=== PATIENT | female | born 1945 | race Caucasian/White ===

== ENCOUNTER → 2016-07-05 | Outpatient (CLI) | payer MEDICARE ==
[~2016-07-05] MED LIST: ALLE10TA5 PO; ATEN-102 PO; ATEN25TA PO; B COTAB3 PO; CALC500T21 PO; CLAR10CA3 PO; FURO1TAB93 PO; FURO20TA PO; GLUCTAB PO; LISI10TA3 PO; METF1000 PO; PERC5TAB12 PO; POTA-243 PO; POTA10CA PO; TAB-TAB PO; VITA400C70 PO; VITA500C PO
[2016-07-05 12:08] LABS: HEMOGLOBIN A1a 1.1 %; HEMOGLOBIN F 1.1 %; HEMOGLOBIN LA1C 2.1 %; HEMOGLOBIN P3 3.7 %
== END ==
LOC: CLAB 09:31
PROVIDERS: ATTEND Family Medicine
DX: E11.9 Type 2 diabetes mellitus without complications (principal)
CPT/HCPCS: 36415; 83036

== ENCOUNTER 2016-08-31 10:57 | Observation (INO) | payer MEDICARE ==
[2016-08-31] VITALS (9 sets, daily range): BP systolic 148–172; BP diastolic 71–87; PULSE 62–87; RESP 15–18; TEMP 97.7–98.8; O2SAT 94–100
[~2016-08-31] VITALS: Ht 160 cm; Wt 104.0 kg
[~2016-08-31 10:57] MED LIST changes: -ATEN25TA PO; -CLAR10CA3 PO; -FURO20TA PO; -LISI10TA3 PO; -METF1000 PO; -POTA10CA PO
--- NOTE | 2016-08-31 11:23 | PD ---
HPI Chief Complaint: Chest Pain Time Seen by Provider: 11:14 Travel History International Travel<30 days: No Contact w/Intl Traveler<30days: No Traveled to known affect area: No History of Present Illness HPI 71-year-old female here for evaluation of substernal chest pain. The patient reports that she has been having intermittent substernal chest discomfort since yesterday evening. Discomfort described as pressure/tightness, worse with deep inspiration and slightly worse with movements. She denies dyspnea. No hemoptysis. No known history of cardiac disease. No history of DVT or PE. She has had a hysterectomy for suspected endometrial cancer, however the patient reports that she does not have cancer. No fevers, chills, cough, or recent illness. No paresthesias or motor deficits. PFSH Past Medical History Cancer: No Cardiovascular Problems: No Diabetes: Yes Patient Takes Glucophage: Yes Endocrine: No Gastrointestinal Disorders: No Genitourinary: No Hepatitis: No Hiatal Hernia: No Hypertension: Yes Immune Disorder: No Medical other: Yes (SARCOIDOSIS) Musculoskeletal: No Neurologic: No Psychiatric: No Reproductive: No Respiratory: No Thyroid Disease: No Past Surgical History Abdominal Surgery: Yes (CHOLECYSTECTOMY 82') AICD: No Gynecologic Surgery: Yes (D & C) Hysterectomy: Yes Joint Replacement: No Oral Surgery: Yes (AGE 3 T&A) Pacemaker: No Thoracic Surgery: Yes (MEDIASTINOSCOPY (SARCOIDOSIS)) Other Surgery: Yes Social History Alcohol Use: No Tobacco Use: No Substance Use: No Allergies-Medications (Allergen,Severity, Reaction): Coded Allergies: Floxcin (Unverified Allergy, Severe, HYPERACTIVE, 09/04/12) Sulfa (Unverified Allergy, Severe, LIPS SWELLING; RASH, 09/04/12) Reported Meds & Prescriptions Reported Meds & Active Scripts Active Review of Systems Except as stated in HPI: all other systems reviewed are Neg Physical Exam Narrative GENERAL: Well-developed, well-nourished, comfortable, no acute distress. SKIN: Warm and dry. No rash. HEAD: Atraumatic. Normocephalic. EYES: Pupils equal and round. No scleral icterus. No injection or drainage. ENT: Mucous membranes pink and moist. NECK: Trachea midline. No JVD. CARDIOVASCULAR: Regular rate and rhythm. Distal pulses brisk and equal bilaterally. RESPIRATORY: No accessory muscle use. Clear to auscultation. Breath sounds equal bilaterally. GASTROINTESTINAL: Abdomen soft, non-tender, nondistended. MUSCULOSKELETAL: No obvious deformities. No clubbing. No cyanosis. No edema. NEUROLOGICAL: Awake and alert. No obvious cranial nerve deficits. Motor grossly within normal limits. Normal speech. PSYCHIATRIC: Appropriate mood and affect; insight and judgment normal. Data Data Last Documented VS Vital Signs Date Time Temp Pulse Resp B/P Pulse Ox O2 Delivery O2 Flow Rate FiO2 08/31/16 13:21 62 18 163/74 97 Room Air 08/31/16 10:58 98.0 Orders Electrocardiogram (08/31/16 ) Complete Blood Count With Diff (08/31/16 11:20) Comprehensive Metabolic Panel (08/31/16 11:20) B-Type Natriuretic Peptide (08/31/16 11:20) Act Partial Throm Time (Ptt) (08/31/16 11:20) Prothrombin Time / Inr (Pt) (08/31/16 11:20) Ckmb (Isoenzyme) Profile (08/31/16 11:20) Troponin I (08/31/16 11:20) Iv Access Insert/Monitor (08/31/16 11:20) Electrocardiogram (08/31/16 11:20) Ecg Monitoring (08/31/16 11:20) Oximetry (08/31/16 11:20) Oxygen Administration (08/31/16 11:20) Chest, Single Ap (08/31/16 11:20) Ct Pulmonary Angiogram (08/31/16 11:20) Sodium Chloride 0.9% Flush (Ns Flush) (08/31/16 11:30) Aspirin Chew (Aspirin Chew) (08/31/16 11:30) Iohexol 350 Inj (Omnipaque 350 Inj) (08/31/16 13:14) Labs Laboratory Tests Test 08/31/16 08/31/16 11:24 11:25 Sodium Level 137 MEQ/L Potassium Level 3.7 MEQ/L Chloride Level 100 MEQ/L Carbon Dioxide Level 27.7 MEQ/L Anion Gap 9 MEQ/L Blood Urea Nitrogen 8 MG/DL Creatinine 0.78 MG/DL Estimat Glomerular Filtration 73 ML/MIN Rate Random Glucose 146 MG/DL Calcium Level 8.6 MG/DL Total Bilirubin 0.6 MG/DL Aspartate Amino Transf 14 U/L (AST/SGOT) Alanine Aminotransferase 17 U/L (ALT/SGPT) Alkaline Phosphatase 89 U/L Total Creatine Kinase 33 U/L Troponin I LESS THAN 0.02 NG/ML Total Protein 8.0 GM/DL Albumin 3.3 GM/DL White Blood Count 17.7 TH/MM3 Red Blood Count 4.40 MIL/MM3 Hemoglobin 13.2 GM/DL Hematocrit 39.6 % Mean Corpuscular Volume 90.1 FL Mean Corpuscular Hemoglobin 29.9 PG Mean Corpuscular Hemoglobin 33.2 % Concent Red Cell Distribution Width 14.1 % Platelet Count 208 TH/MM3 Mean Platelet Volume 10.0 FL Neutrophils (%) (Auto) 53.6 % Lymphocytes (%) (Auto) 27.1 % Monocytes (%) (Auto) 19.1 % Eosinophils (%) (Auto) 0.0 % Basophils (%) (Auto) 0.2 % Neutrophils # (Auto) 9.5 TH/MM3 Lymphocytes # (Auto) 4.8 TH/MM3 Monocytes # (Auto) 3.4 TH/MM3 Eosinophils # (Auto) 0.0 TH/MM3 Basophils # (Auto) 0.0 TH/MM3 CBC Comment AUTO DIFF Differential Comment AUTO DIFF CONFIRMED Platelet Estimate NORMAL Platelet Morphology Comment NORMAL Prothrombin Time 11.3 SEC Prothromb Time International 1.0 RATIO Ratio Activated Partial 28.9 SEC Thromboplast Time B-Type Natriuretic Peptide 144 PG/ML MDM Medical Decision Making Medical Screen Exam Complete: Yes Emergency Medical Condition: Yes Medical Record Reviewed: Yes Interpretation(s) EKG: Sinus, rate 65, left axis deviation, RBBB, no acute ischemic abnormality. Differential Diagnosis ACS, pneumothorax, pericarditis, PE, pneumonia, musculoskeletal pain Narrative Course Vital signs show heart rate 67, blood pressure 150/71, pulse ox 97% on room air , oral temp of 98F. CBC shows WBC 17.7, hemoglobin 13.2, hematocrit 39.6, platelets CMP is remarkable for random glucose 146, otherwise unremarkable. Cardiac enzymes are negative. BNP is 144. Chest x-ray shows no acute cardiopulmonary abnormality. CT pulmonary angiogram: CONCLUSION: 1. No PE is identified. 2. Linear atelectasis in the right upper lobe and right lower lobe. No acute pulmonary abnormality is seen. Patient has a slight leukocytosis. She is afebrile. I do not believe that this is from an infectious source. Patient was made aware of all findings. She is resting comfortably. I believe she is a good candidate for further cardiac evaluation in the chest pain center. She is amenable to this plan. She was given 325 mg of aspirin in the emergency department. Diagnosis Primary Impression: Chest pain Qualified Code: R07.9 - Chest pain, unspecified type Additional Impression: Leukocytosis Qualified Code: D72.829 - Leukocytosis, unspecified type Admitting Information Admitting Physician Requests: Akil Ramirez MD Aug 31, 2016 11:23
[2016-08-31] MEDS ORDERED: ASPIRIN 81 MG CHEW TAB PO ONE (11:30)
[2016-08-31] MEDS ORDERED: SODIUM CHLORIDE 0.9% FLUSH 5 ML FLUSH IVF PRN ×2 (11:30→14:15)
[2016-08-31 12:01] LABS: AUTOMATED NEUTROPHIL # 9.5 TH/MM3 (1.8-7.7); BASOPHIL % 0.2 % (0.0-2.0); HEMATOCRIT 39.6 % (35.0-46.0); LYMPH % 27.1 % (9.0-44.0); LYMPHOCYTE # 4.8 TH/MM3 (1.0-4.8); MEAN CELL VOLUME 90.1 FL (80.0-100.0); MEAN CORPUSCULAR HEMOGLOBIN 29.9 PG (27.0-34.0); MEAN CORPUSCULAR HGB CONC 33.2 % (32.0-36.0); MONO % 19.1 % (0.0-8.0); NEUT % 53.6 % (16.0-70.0); PLATELET COUNT 208 TH/MM3 (150-450); RED CELL DISTRIBUTION WIDTH 14.1 % (11.6-17.2); WHITE BLOOD COUNT 17.7 TH/MM3 (4.0-11.0)
[2016-08-31 12:04] LABS: HEMO FLAGS AUTO DIFF
[2016-08-31 12:11] LABS: APTT (PATIENT) 28.9 SEC (24.3-30.1); PROTHROMBIN TIME - PATIENT 11.3 SEC (9.8-11.6)
[2016-08-31 12:18] LABS: ANION GAP 9 MEQ/L (5-15); AST (GOT) 14 U/L (15-37); BICARBONATE 27.7 MEQ/L (21.0-32.0); BLOOD UREA NITROGEN 8 MG/DL (7-18); CHLORIDE 100 MEQ/L (98-107); GLOMERULAR FILTRATION RATE 73 ML/MIN (>89); POTASSIUM 3.7 MEQ/L (3.5-5.1); SODIUM (NA) 137 MEQ/L (136-145)
[2016-08-31 12:23] LABS: ALKALINE PHOSPHATASE 89 U/L (45-117); ALT (GPT) 17 U/L (10-53); TOTAL BILIRUBIN ADULT 0.6 MG/DL (0.2-1.0)
[2016-08-31 12:24] LABS: CREATINE KINASE 33 U/L (26-192)
[2016-08-31 12:38] LABS: PLATELET ESTIMATE SMEAR NORMAL (NORMAL); PLATELET MORPHOLOGY NORMAL (NORMAL); SCAN/DIFF AUTO DIFF CONFIRMED
--- NOTE | 2016-08-31 12:47 | RADRPT ---
EXAM DATE/TIME: 08/31/2016 12:04 [facility] COMPARISON: CHEST PA & LAT, September 04, 2012, 15:48. INDICATIONS : Shortness of breath, chest pain starting today MEDICAL HISTORY : None. SURGICAL HISTORY : None. ENCOUNTER: Initial ACUITY: 1 day PAIN SCORE: 5/10 LOCATION: Bilateral chest FINDINGS: Portable AP view of the chest demonstrates a normal-sized cardiac silhouette. No effusion, consolidat ion, or pneumothorax is visualized. There is stable elevation of the right hemidiaphragm with linear scar at the right lung base The bones and soft tissues demonstrate no acute abnormality. CONCLUSION: No acute cardiopulmonary abnormality is identified. Matthew Soriano MD on August 31, 2016 at 12:45 Board Certified Radiologist. This report was verified electronically.
[2016-08-31] MEDS ORDERED: IOHEXOL 350 MG/ML 10 ML VIAL (for RAD DIAG) IV ONE (13:14)
--- NOTE | 2016-08-31 13:27 | RADRPT ---
EXAM DATE/TIME: 08/31/2016 12:43 [facility] COMPARISON: CHEST SINGLE AP, August 31, 2016, 12:04. INDICATIONS : Chest pain. IV CONTRAST: 75 cc Omnipaque 350 (iohexol) IV RADIATION DOSE: 20.98 CTDIvol (mGy) MEDICAL HISTORY : Hypertension. SURGICAL HISTORY : Cholecystectomy. ENCOUNTER: Initial ACUITY: 1 day PAIN SCALE: 4/10 LOCATION: Bilateral chest TECHNIQUE: Volumetric scanning of the chest was performed using a pulmonary embolism protocol MIP images were re constructed. Using automated exposure control and adjustment of the mA and/or kV according to patien t size, radiation dose was kept as low as reasonably achievable to obtain optimal diagnostic quality images. FINDINGS: PULMONARY ARTERIES: No filling defects are seen in the pulmonary arteries through the segmental level. LUNGS: There is no consolidation or pneumothorax . No concerning pulmonary nodule is visualized. There is a linear opacity in the right upper lobe and right lower lobe likely representing subsegmental atelect asis. PLEURAE: There is no pleural thickening or pleural effusion. MEDIASTINUM: There is good visualization of the great vessels of the middle mediastinum. No evidence of mediastin al or hilar adenopathy/mass. MUSCULOSKELETAL: No acute abnormality is identified. MISCELLANEOUS: The visualized upper abdominal organs demonstrate no acute abnormality. There has been prior cholecys tectomy multiple clips in the gallbladder fossa. There is atherosclerotic disease of the aorta. CONCLUSION: 1. No PE is identified. 2. Linear atelectasis in the right upper lobe and right lower lobe. No acute pulmonary abnormality is seen. Matthew Soriano MD on August 31, 2016 at 13:22 Board Certified Radiologist. This report was verified electronically.
[2016-08-31] MEDS ORDERED: GLUCAGON 1 MG/ML VIAL IM/SQ PRN (14:15)
[2016-08-31] MEDS ORDERED: ONDANSETRON HCL 4 MG/2 ML VIAL IV PRN (14:15)
[2016-08-31] MEDS ORDERED: DEXTROSE 50% IN WATER 50 ML VIAL(D50) IV PRN (14:15)
[2016-08-31] MEDS ORDERED: ALPRAZolam 0.25 MG TAB PO PRN (14:15)
[2016-08-31] MEDS ORDERED: ACETAMINOPHEN 500 MG CPLT PO PRN (14:15)
[2016-08-31] MEDS ORDERED: ATEN25TA PO (14:29)
[2016-08-31] MEDS ORDERED: POTA10CA PO (14:29)
[2016-08-31] MEDS ORDERED: FURO20TA PO (14:29)
[2016-08-31] MEDS ORDERED: METF1000 PO (14:29)
[2016-08-31] MEDS ORDERED: CLAR10CA3 PO (14:29)
--- NOTE | 2016-08-31 14:31 | HHI.HP ---
[facility] Primary Care Physician Heather Burton MD Chief Complaint Chest pain History of Present Illness This is a 71-year-old female that presents to ED via private vehicle with her complaining of discomfort in her chest. She states that she developed a discomfort while sitting at home last evening. The discomfort was in the center of her chest. It was a tightness. Taking a deep breath worsened the discomfort. When she pushed her breasts toward each other the pain also was intensified. The discomfort was initially a 9 out of 10 but currently discomfort as mild but still present. She was also short of breath with her symptoms. She had an episode of emesis with her symptoms last evening as well. Denies diaphoresis. Denies history of CAD. States she's never had a stress test. Denies recent illness. Denies fevers or chills. Denies recent travel. Review of Systems General: Patient denies fevers, chills recent, and recent travel HEENT: Patient denies headache, sore throat, difficulty swallowing. Cardiovascular: Has the chest discomfort as mentioned above. Denies sensation of heart beating rapidly or irregularly. Denies diaphoresis. No syncope. Respiratory: Patient complained of shortness of breath and inspirational chest discomfort. Denies coughing wheezing or hemoptysis. GI: Patient was nauseous with one episode of nonbloody nonbilious emesis last evening. Denies diarrhea, abdominal pain, bloody stools. Musculoskeletal: Patient denies joint pain or edema. Denies calf pain or edema. Neurovascular: Patient states she is little wobbly when walking and is waiting to get an appointment with a neurologist to further evaluate this. Patient denies numbness, tingling, weakness in extremities. Denies headache. Endocrine: Denies polyuria and polydipsia. Hematologic: Denies easy bruising. Skin: Denies rash or itching. Past Family Social History Allergies: Coded Allergies: Floxcin (Unverified Allergy, Severe, HYPERACTIVE, 09/04/12) Sulfa (Unverified Allergy, Severe, LIPS SWELLING; RASH, 09/04/12) Past Medical History Hypertension and diabetes. Denies hyperlipidemia and CAD. Past Surgical History Hysterectomy, cholecystectomy, tonsillectomy, biopsy for sarcoidosis. Reported Medications Reported Meds & Active Scripts Active Active Ordered Medications Current Medications Medications (Trade) Dose Ordered Sig/Christopher Route Start Time Stop Time Status Last Admin (NS Flush) 2 ml UNSCH PRN IVF 08/31/16 14:15 UNV (NS Flush) 2 ml BID IVF 08/31/16 21:00 UNV (Tylenol) 500 mg Q4H PRN PO 08/31/16 14:15 UNV ([place] 7.5-325 Mg) 1 tab Q4H PRN PO 08/31/16 14:15 UNV (Zofran Inj) 4 mg Q6H PRN IV 08/31/16 14:15 UNV (Protonix) 40 mg DAILY PO 08/31/16 14:15 UNV (Xanax) 0.25 mg Q8H PRN PO 08/31/16 14:15 UNV (D50w (Vial) Inj) 25 ml UNSCH PRN IV 08/31/16 14:15 UNV (Glucagon Inj) 1 mg UNSCH PRN IM/SQ 08/31/16 14:15 UNV Family History Denies family history of CAD. Social History Patient is a lifetime nonsmoker and denies illicit drugs and denies alcohol use. She has been for 22 years. 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 Physical Exam Vital Signs Vital Signs Date Time Temp Pulse Resp B/P Pulse Ox O2 Delivery O2 Flow Rate FiO2 08/31/16 13:21 62 18 163/74 97 Room Air 08/31/16 11:33 64 18 151/87 96 Room Air 08/31/16 11:33 96 Room Air 08/31/16 11:33 18 96 08/31/16 11:16 66 18 151/87 100 Room Air 08/31/16 11:11 67 18 95 Room Air 08/31/16 10:58 98.0 67 15 150/71 95 Physical Exam GENERAL: This is a well-nourished, well-developed patient, in no apparent distress. Patient speaks in clear complete sentences. Patient is pleasant. Her is at the bedside is also very pleasant. HEENT: Head is atraumatic and normocephalic. Neck is supple without lymphadenopathy and trachea is midline. No JVD or carotid bruits. CARDIOVASCULAR: Regular rate and rhythm without murmurs, gallops, or rubs. RESPIRATORY: Clear to auscultation. Breath sounds equal bilaterally. No wheezes , rales, or rhonchi. Chest wall is tender when palpating over the sternum and also left of the sternum. This is similar discomfort which she has been having. No use of accessory muscles. GASTROINTESTINAL: Abdomen is nontender, nondistended. Abdomen soft. No obvious pulsatile mass or bruit. No CVA tenderness. Strong femoral pulses bilaterally. Normal bowel sounds in all quadrants. MUSCULOSKELETAL: Patient is moving upper and lower extremities freely. No calf tenderness or edema, no Homans sign. Strong pulses in upper and lower extremities. NEUROLOGICAL: Patient is alert and oriented. Cranial nerves 2-12 are grossly intact. No focal deficits and speech is clear. SKIN: No rash and turgor is normal. Laboratory Laboratory Tests Test 08/31/16 08/31/16 11:24 11:25 Sodium Level 137 Potassium Level 3.7 Chloride Level 100 Carbon Dioxide Level 27.7 Anion Gap 9 Blood Urea Nitrogen 8 Creatinine 0.78 Estimat Glomerular Filtration 73 Rate Random Glucose 146 Calcium Level 8.6 Total Bilirubin 0.6 Aspartate Amino Transf 14 (AST/SGOT) Alanine Aminotransferase 17 (ALT/SGPT) Alkaline Phosphatase 89 Total Creatine Kinase 33 Troponin I LESS THAN 0.02 Total Protein 8.0 Albumin 3.3 White Blood Count 17.7 Red Blood Count 4.40 Hemoglobin 13.2 Hematocrit 39.6 Mean Corpuscular Volume 90.1 Mean Corpuscular Hemoglobin 29.9 Mean Corpuscular Hemoglobin 33.2 Concent Red Cell Distribution Width 14.1 Platelet Count 208 Mean Platelet Volume 10.0 Neutrophils (%) (Auto) 53.6 Lymphocytes (%) (Auto) 27.1 Monocytes (%) (Auto) 19.1 Eosinophils (%) (Auto) 0.0 Basophils (%) (Auto) 0.2 Neutrophils # (Auto) 9.5 Lymphocytes # (Auto) 4.8 Monocytes # (Auto) 3.4 Eosinophils # (Auto) 0.0 Basophils # (Auto) 0.0 CBC Comment AUTO DIFF Differential Comment AUTO DIFF CONFIRMED Platelet Estimate NORMAL Platelet Morphology Comment NORMAL Prothrombin Time 11.3 Prothromb Time International 1.0 Ratio Activated Partial 28.9 Thromboplast Time B-Type Natriuretic Peptide 144 Result Diagram: 08/31/16 1125 08/31/16 1124 Imaging Last 48 hours Impressions Chest X-Ray 08/31/16 1120 Signed Impressions: Service Date/Time: Wednesday, August 31, 2016 12:04 - CONCLUSION: No acute cardiopulmonary abnormality is identified. Matthew Soriano MD CT Angiography 08/31/16 1120 Signed Impressions: Service Date/Time: Wednesday, August 31, 2016 12:43 - CONCLUSION: 1. No PE is identified. 2. Linear atelectasis in the right upper lobe and right lower lobe. No acute pulmonary abnormality is seen. Matthew Soriano MD Course Initial EKG has right bundle branch block. No significant ST segment depressions or elevations. Assessment and Plan Assessment and Plan * Chest pain: Patient will continue to have serial cardiac enzymes and EKGs for ruling out purposes. Patient has had some coffee this morning and will subsequently need to spend the evening in the chest pain center. She will have a Lexiscan in the morning if she rules out. She'll be seen by Dr. Katz in the chest pain center. Patient will likely be discharged home if her stress test were to be nonischemic with instructions to follow-up with her primary care physician. Her white blood cell count was little elevated we'll get a repeat CBC in the morning. * Hypertension: Continue current medication. * Diabetes: Patient will resume her medication at discharge and has been advised to follow diabetic diet. Patient also needs discuss the need of a statin as she is diabetic. There may be a contraindication for statin therapy, patient will discuss this with her PCP. Patient is stable at this time. She is agreeable to this plan. Emilio Cates Aug 31, 2016 14:30
[2016-08-31] MEDS ORDERED: cloNIDine HCL 0.1 MG TAB PO PRN (15:15)
[2016-08-31] MEDS: PANTOPRAZOLE SOD 40 MG DELAYED RELEASE TAB PO SCH (15:42)
[2016-08-31 15:46] LABS: CREATINE KINASE 24 U/L (26-192)
[2016-08-31] MEDS: INSULIN ASPART SUPPLEMENTAL SCALE SQ SCH ×2 (16:31→21:00)
[2016-08-31] MEDS: LISINOPRIL 10 MG TAB PO SCH (17:15)
[2016-08-31 18:27] LABS: CREATINE KINASE 27 U/L (26-192)
[2016-08-31] MEDS: SODIUM CHLORIDE 0.9% FLUSH 5 ML FLUSH IVF SCH (19:52)
--- NOTE | 2016-08-31 22:43 | EKG ---
Date Performed: 08/31/2016 Time Performed: 17:32:03 PTAGE: 71 years EKG: Sinus rhythm RIGHT BUNDLE BRANCH BLOCK ABNORMAL ECG PREVIOUS TRACING : 08/31/2016 14.45 DOCTOR: Jl Katz Interpretating Date/Time 08/31/2016 22:42:05
[2016-09-01] VITALS: BP 151/76; PULSE 74; PULSE 83; RESP 18; TEMP 97.8; O2SAT 98
[2016-09-01] MEDS: ACETAMINOPHEN/HYDROcodone 325 MG/7.5 MG TAB PO PRN ×2 (00:10→08:17)
[2016-09-01 04:00] VITALS: PULSE 71
[2016-09-01 05:38] LABS: AUTOMATED NEUTROPHIL # 5.9 TH/MM3 (1.8-7.7); BASOPHIL # 0.1 TH/MM3 (0-0.2); BASOPHIL % 0.5 % (0.0-2.0); EOSINOPHIL % 0.3 % (0.0-4.0); LYMPHOCYTE # 4.9 TH/MM3 (1.0-4.8); MEAN CELL VOLUME 90.7 FL (80.0-100.0); MEAN CORPUSCULAR HEMOGLOBIN 30.2 PG (27.0-34.0); MEAN CORPUSCULAR HGB CONC 33.3 % (32.0-36.0); MONO % 22.3 % (0.0-8.0); NEUT % 41.9 % (16.0-70.0); PLATELET COUNT 173 TH/MM3 (150-450); RED BLOOD COUNT 3.96 MIL/MM3 (4.00-5.30); WHITE BLOOD COUNT 14.1 TH/MM3 (4.0-11.0)
[2016-09-01 05:46] LABS: HEMO FLAGS AUTO DIFF
[2016-09-01] MEDS: INSULIN ASPART SUPPLEMENTAL SCALE SQ SCH (06:36)
[2016-09-01 07:13] LABS: PLATELET ESTIMATE SMEAR NORMAL (NORMAL); PLATELET MORPHOLOGY NORMAL (NORMAL); SCAN/DIFF AUTO DIFF CONFIRMED
[2016-09-01 07:56] VITALS: BP 119/61; PULSE 70; RESP 18; TEMP 97.7; O2SAT 95
[2016-09-01] MEDS: LISINOPRIL 10 MG TAB PO SCH (08:17)
[2016-09-01] MEDS: SODIUM CHLORIDE 0.9% FLUSH 5 ML FLUSH IVF SCH (08:17)
[2016-09-01] MEDS: PANTOPRAZOLE SOD 40 MG DELAYED RELEASE TAB PO SCH (08:17)
[2016-09-01 08:26] VITALS: PULSE 68
[2016-09-01] MEDS ORDERED: REGADENOSON INJ 0.4 MG/5 ML SYR ONE (08:46)
[2016-09-01] MEDS ORDERED: POTASSIUM CHLORIDE 10 MEQ CAP PO SCH (09:00)
[2016-09-01] MEDS ORDERED: FUROSEMIDE 20 MG TAB PO SCH (09:00)
[2016-09-01] MEDS ORDERED: ATENOLOL 25 MG TAB PO SCH (09:00)
--- NOTE | 2016-09-01 11:09 | RADRPT ---
EXAM DATE/TIME: 09/01/2016 08:58 [facility] COMPARISON: CHEST SINGLE AP, August 31, 2016, 12:04. INDICATIONS : Substernal chest pain for 2 days. Angina. DOSE: 35 mCi Tc99m Myoview at stress. 11 mCi Tc99m Myoview at rest. 0.4 mg Lexiscan STRESS SYMPTOMS: Dyspnea. EJECTION FRACTION: > 70% MEDICAL HISTORY : Hypertension. SURGICAL HISTORY : Hysterectomy. Cholecystectomy. ENCOUNTER: Initial ACUITY: 2 days PAIN SCALE: 6/10 LOCATION: Substernal chest TECHNIQUE: The patient underwent pharmacologic stress with infusion of prescribed dose. Continuous ECG tracing was monitored during stress. Gated SPECT imaging was performed after stress and conventional SPECT i maging was performed at rest. The examination was performed on a SPECT/CT scanner, both attenuation and non-corrected datasets were reviewed. FINDINGS: DISTRIBUTION: The maximum perfused segment at stress is in the anterolateral wall. PERFUSION STUDY: The pattern of perfusion at stress is within normal limits. GATED STUDY: There is intact wall motion and thickening without hypokinetic or dyskinetic segments. CONCLUSION: 1. Left ventricle perfusion is within normal limits. No significant fixed or reversible perfusion def ect is identified. 2. Normal left ventricle wall motion and ejection fraction. RISK CATEGORY: Low (<1% Annual Mortality Rate) Matthew Soriano MD on September 01, 2016 at 11:06 Board Certified Radiologist. This report was verified electronically.
[2016-09-01] MEDS ORDERED: LISI10TA3 PO (12:08)
[2016-09-01] MEDS ORDERED: METF1000 PO (12:08)
--- NOTE | 2016-09-01 12:09 | HHI.DCPOC ---
Discharge Care Plan Diagnosis: (1) Chest pain (2) Hypertension (3) DM (diabetes mellitus) (4) Leukocytosis Goals to Promote Your Health * To prevent worsening of your condition and complications * To maintain your health at the optimal level Directions to Meet Your Goals Take your medications as prescribed Follow your dietary instruction Follow activity as directed Keep your appointments as scheduled Take your immunizations and boosters as scheduled If your symptoms worsen call your PCP, if no PCP go to Urgent Care Center or Emergency Room Smoking is Dangerous to Your Health. Avoid second hand smoke Call the 24-hour hour crisis hotline for domestic abuse at Emilio Cates Sep 01, 2016 12:09
--- NOTE | 2016-09-01 13:07 | TR ---
Date Performed: 09/01/2016 Time Performed: 09:29:42 DOCTOR: Jl Katz DRUG LIST: CLINICAL HISTORY: REASON FOR TEST: CHEST PAIN REASON FOR ENDING: OBSERVATION: CONCLUSION: Lexiscan stress test was performed under standard four minute protocol. Radionuclide was injected one minuye prior to ending the test. The patient was asymptomatic. No electrocardiograp hic abnormalities were present to suggest ischemia. Recovery was quick and uneventful. Nuclear imagin g and interpretation are pending. COMMENTS:
--- NOTE | 2016-09-01 14:27 | EKG ---
Date Performed: 08/31/2016 Time Performed: 14:45:54 PTAGE: 71 years EKG: Sinus rhythm RIGHT BUNDLE BRANCH BLOCK ABNORMAL ECG Compared to prior tracing no significant change PREVIOUS TRACING : 08/31/2016 11.25 DOCTOR: Ramin Cabral Interpretating Date/Time 09/03/2016 07:16:01
--- NOTE | 2016-09-01 14:27 | EKG ---
Date Performed: 08/31/2016 Time Performed: 11:25:02 PTAGE: 71 years EKG: Sinus rhythm WITH OCCASIONAL SUPRAVENTRICULAR PREMATURE COMPLEXES RIGHT BUNDLE BRANCH BLOCK ABNORMAL ECG Compared to prior tracing no significant change PREVIOUS TRACING : 09/04/2012 15.14 DOCTOR: Ramin Cabral Interpretating Date/Time 09/01/2016 14:25:24
== END 2016-09-01 13:26 | disposition home or self-care (01) ==
LOC: NEPC 10:57 → NEDA 13:44 → NEPHCDU 14:52
PROVIDERS: ADMIT Family Medicine; ATTEND Family Medicine
DX: R07.9 Chest pain, unspecified (principal); I10 Essential (primary) hypertension; E11.9 Type 2 diabetes mellitus without complications; D72.829 Elevated white blood cell count, unspecified
CPT/HCPCS: 71010; 71275; 78452; 80053; 82550; 82948; 83880; 84484; 85025; 85610; 85652; 85730; 93005; 93017; 99285; A9502; G0378; J1815; J2785; Q9967

== ENCOUNTER → 2016-10-31 | Outpatient (CLI) | payer MEDICARE ==
[~2016-10-31] MED LIST changes: -ALLE10TA5 PO; -ATEN-102 PO; +ATEN25TA PO; -B COTAB3 PO; -CALC500T21 PO; +CLAR10CA3 PO; -FURO1TAB93 PO; +FURO20TA PO; -GLUCTAB PO; +LISI10TA3 PO; +METF1000 PO; -PERC5TAB12 PO; -POTA-243 PO; +POTA10CA PO; -TAB-TAB PO; -VITA400C70 PO; -VITA500C PO
[2016-10-31 11:41] LABS: ALKALINE PHOSPHATASE 91 U/L (45-117); TOTAL BILIRUBIN ADULT 0.5 MG/DL (0.2-1.0)
[2016-10-31 11:44] LABS: ALT (GPT) 18 U/L (10-53); ANION GAP 7 MEQ/L (5-15); AST (GOT) 21 U/L (15-37); BICARBONATE 28.6 MEQ/L (21.0-32.0); BLOOD UREA NITROGEN 9 MG/DL (7-18); CHLORIDE 104 MEQ/L (98-107); GLOMERULAR FILTRATION RATE 84 ML/MIN (>89); GLUCOSE,FASTING 121 MG/DL (74-99); POTASSIUM 3.9 MEQ/L (3.5-5.1); SODIUM (NA) 140 MEQ/L (136-145)
[2016-10-31 19:03] LABS: HEMOGLOBIN A1a 1.1 %; HEMOGLOBIN Ao 84.5 %; HEMOGLOBIN P3 3.7 %
== END ==
LOC: CLAB 10:50
PROVIDERS: ATTEND Family Medicine
DX: E11.9 Type 2 diabetes mellitus without complications (principal); E87.6 Hypokalemia
CPT/HCPCS: 36415; 80053; 83036

== ENCOUNTER → 2017-02-05 | Outpatient (CLI) | payer MEDICARE ==
[2017-02-05 09:58] LABS: BASOPHIL % 0.3 % (0.0-2.0); EOSINOPHIL % 0.5 % (0.0-4.0); HEMO FLAGS DIFF FINAL; LYMPH % 39.2 % (9.0-44.0); LYMPHOCYTE # 3.6 TH/MM3 (1.0-4.8); MEAN CELL VOLUME 90.8 FL (80.0-100.0); MEAN CORPUSCULAR HEMOGLOBIN 31.2 PG (27.0-34.0); MEAN CORPUSCULAR HGB CONC 34.4 % (32.0-36.0); MONO % 16.4 % (0.0-8.0); NEUT % 43.6 % (16.0-70.0); PLATELET COUNT 182 TH/MM3 (150-450); RED BLOOD COUNT 4.08 MIL/MM3 (4.00-5.30); WHITE BLOOD COUNT 9.2 TH/MM3 (4.0-11.0)
[2017-02-05 10:44] LABS: ALT (GPT) 13 U/L (10-53)
[2017-02-05 10:46] LABS: ALKALINE PHOSPHATASE 79 U/L (45-117); HDL CHOLESTEROL 44.9 MG/DL (40.0-60.0); LDL CHOLESTEROL 90 MG/DL (0-99); TOTAL BILIRUBIN ADULT 0.3 MG/DL (0.2-1.0)
[2017-02-05 10:48] LABS: ANION GAP 8 MEQ/L (5-15); AST (GOT) 16 U/L (15-37); BICARBONATE 26.5 MEQ/L (21.0-32.0); BLOOD UREA NITROGEN 9 MG/DL (7-18); CHLORIDE 105 MEQ/L (98-107); GLOMERULAR FILTRATION RATE 96 ML/MIN (>89); GLUCOSE,FASTING 120 MG/DL (74-99); POTASSIUM 3.8 MEQ/L (3.5-5.1); SODIUM (NA) 139 MEQ/L (136-145)
[2017-02-05 16:17] LABS: HEMOGLOBIN A1a 1.1 %; HEMOGLOBIN Ao 84.4 %; HEMOGLOBIN P3 3.7 %
== END ==
LOC: CLAB 09:28
PROVIDERS: ATTEND Family Medicine
DX: E11.59 Type 2 diabetes mellitus with other circulatory complications (principal)
CPT/HCPCS: 36415; 80053; 80061; 83036; 85025

== ENCOUNTER → 2017-08-13 | Outpatient (CLI) | payer MEDICARE ==
[2017-08-13 10:31] LABS: AUTOMATED NEUTROPHIL # 3.4 TH/MM3 (1.8-7.7); BASOPHIL % 0.5 % (0.0-2.0); EOSINOPHIL % 0.2 % (0.0-4.0); HEMATOCRIT 36.5 % (35.0-46.0); HEMOGLOBIN 12.3 GM/DL (11.6-15.3); LYMPH % 34.5 % (9.0-44.0); LYMPHOCYTE # 2.7 TH/MM3 (1.0-4.8); MEAN CELL VOLUME 90.3 FL (80.0-100.0); MEAN CORPUSCULAR HEMOGLOBIN 30.6 PG (27.0-34.0); MEAN CORPUSCULAR HGB CONC 33.8 % (32.0-36.0); MEAN PLATELET VOLUME 9.8 FL (7.0-11.0); MONO % 21.4 % (0.0-8.0); MONOCYTE # 1.7 TH/MM3 (0-0.9); NEUT % 43.4 % (16.0-70.0); PLATELET COUNT 184 TH/MM3 (150-450); RED BLOOD COUNT 4.04 MIL/MM3 (4.00-5.30); WHITE BLOOD COUNT 7.9 TH/MM3 (4.0-11.0)
[2017-08-13 10:49] LABS: ALBUMIN 3.4 GM/DL (3.4-5.0); AST (GOT) 15 U/L (15-37); BICARBONATE 27.7 MEQ/L (21.0-32.0); BLOOD UREA NITROGEN 9 MG/DL (7-18); CALCIUM 9.2 MG/DL (8.5-10.1); CHLORIDE 107 MEQ/L (98-107); CREATININE 0.64 MG/DL (0.50-1.00); GLOMERULAR FILTRATION RATE 91 ML/MIN (>89); GLUCOSE,FASTING 119 MG/DL (74-99); SODIUM (NA) 140 MEQ/L (136-145)
[2017-08-13 10:50] LABS: ALT (GPT) 24 U/L (10-53); CHOLESTEROL 152 MG/DL (120-200)
[2017-08-13 10:52] LABS: ALKALINE PHOSPHATASE 109 U/L (45-117); CHOLESTEROL/ HDL RATIO 3.64 RATIO; HDL CHOLESTEROL 41.7 MG/DL (40.0-60.0); LDL CHOLESTEROL 92 MG/DL (0-99); TOTAL BILIRUBIN ADULT 0.7 MG/DL (0.2-1.0); TOTAL PROTEIN 8.2 GM/DL (6.4-8.2); TRIGLYCERIDES 90 MG/DL (42-150)
[2017-08-13 17:11] LABS: HEMOGLOBIN A1C 6.5 % (4.3-6.0)
== END ==
LOC: CLAB 09:54
PROVIDERS: ATTEND Family Medicine
DX: E11.59 Type 2 diabetes mellitus with other circulatory complications (principal)
CPT/HCPCS: 36415; 80053; 80061; 83036; 85025